=== PATIENT | female | born 1985 | race Caucasian/White ===

== ENCOUNTER 2023-11-13 08:27 | Outpatient (CLI) | payer OTHER ==
[2023-11-13 12:09] LABS: BASOPHILS % (AUTO) 0.9 %; EOSINOPHILS # (AUTO) 0.1 10^3/uL (0.0-0.7); EOSINOPHILS % (AUTO) 2.2 %; HCT - HEMATOCRIT 42.2 % (37.0-47.0); HGB - HEMOGLOBIN 13.8 g/dL (12.0-16.0); LYMPHOCYTES # (AUTO) 1.7 10^3/uL (1.5-3.5); LYMPHOCYTES % (AUTO) 36.5 %; MEAN CORPUSCULAR HEMOGLOBIN 30.2 pg (27.0-31.0); MEAN CORPUSCULAR HGB CONC 32.7 g/dL (32.0-36.0); MEAN CORPUSCULAR VOLUME 92.3 fL (81.0-99.0); MEAN PLATELET VOLUME 9.3 fL (7.9-10.8); MONOCYTES # (AUTO) 0.3 10^3/uL (0.0-1.0); MONOCYTES % (AUTO) 6.5 %; NEUTROPHILS # (AUTO) 2.5 10^3/uL (1.5-6.6); NEUTROPHILS % (AUTO) 53.7 %; PLT - PLATELET COUNT 204 10^3/uL (130-450); RED BLOOD COUNT 4.57 10^6/uL (4.20-5.40); RED CELL DISTRIBUTION WIDTH 11.9 % (12.0-15.0); WHITE BLOOD COUNT 4.6 x10^3/uL (4.8-10.8)
[2023-11-13 13:00] LABS: THYROID STIMULATING HORMONE 0.98 uIU/mL (0.34-5.60)
[2023-11-13 13:04] LABS: PROLACTIN 4.31 ng/mL
== END 2023-11-13 08:28 | disposition home or self-care (01) ==
LOC: LAB.N 08:27
PROVIDERS: ATTEND Physician Assistant
DX: E22.1 Hyperprolactinemia (principal); D35.2 Benign neoplasm of pituitary gland; N93.9 Abnormal uterine and vaginal bleeding, unspecified; N92.0 Excessive and frequent menstruation with regular cycle
CPT/HCPCS: 36415; 82024; 82533; 83001; 83002; 84146; 84439; 84443; 85025

== ENCOUNTER 2023-11-15 09:45 | Outpatient (CLI) | payer OTHER ==
--- NOTE | 2023-11-15 17:03 | Ultrasound Report ---
PROCEDURE: Pelvic w/Transvaginal INDICATIONS: AUB TECHNIQUE: Real-time scanning was performed of the pelvic organs, with image documentation. Additional endovagi nal scanning was necessary due to incomplete visualization of the adnexal and endometrial structures by transabdominal scanning. COMPARISON: None. FINDINGS: Uterus: Uterus is anteverted and normal in size at 8.0 x 4.4 x 4.0 cm. The myometrium is homogeneou s. The endometrium measures 8 mm in combined thickness. Ovaries: The right ovary measures 3.3 x 2.0 x 2.0 cm, with a calculated ovarian volume of 6.8 cc. T he left ovary measures 2.8 x 1.9 x 1.9 cm, with a calculated ovarian volume of 5.25 cc. The ovaries have a normal sonographic appearance. Less than 12 follicles can be seen in each ovary. No adnexal masses are seen. There is a right corpus luteal cyst which measures 1.7 x 2.3 x 1.5 cm and a left ova jurgen follicle which measures 1.4 x 1.0 x 1.3 cm. Other: No pathologic free abdominal or pelvic fluid. IMPRESSION: 1. Unremarkable pelvic ultrasound. Reviewed by: Samanta Limon MD on 11/15/2023 5:01 PM PST Approved by: Samanta Limon MD on 11/15/2023 5:01 PM PST Station ID: [id number]
== END 2023-11-15 09:46 | disposition home or self-care (01) ==
LOC: DI 09:45
PROVIDERS: ATTEND Physician Assistant
DX: N93.9 Abnormal uterine and vaginal bleeding, unspecified (principal); E22.1 Hyperprolactinemia

== ENCOUNTER 2024-07-06 11:18 | Outpatient (CLI) | payer OTHER ==
--- NOTE | 2024-07-13 11:27 | Mammography Report ---
BILATERAL DIGITAL SCREENING MAMMOGRAM 3D/2D: 07/06/2024 CLINICAL: Routine screening. No prior exams were available for comparison. The breasts are extremely dense, which lowers the sensitivity of mammography (category d />75% glandu lar tissue). No significant masses, calcifications, or other findings are seen in either breast. IMPRESSION: NEGATIVE There is no mammographic evidence of malignancy. A 1 year screening mammogram is recommended. Based on Tyrer-Cuzick model (a risk assessment model), the patient's lifetime risk is 23.1% and her 1 0 year risk is 3.1%. If a patient has an elevated risk, a more comprehensive evaluation should be con sidered and/or a referral to a genetic counselor. The [place] [employer], [place] [employer], and NCCN Guidelines advise the consideration of Breast MRI as an adjunct to screening mammog digna in patients whose "Lifetime risk to develop breast cancer" is 20% or higher. This exam was interpreted at Station ID: [id number]. NOTE: For mammograms, a report in lay terms will be sent to the patient. Approximately 15% of breast malignancies will not be visualized mammographically. In the management of a palpable breast mass, a negative mammogram must not discourage biopsy of a clinically suspicious lesion. Electronically Signed By: Dhara alvarez/patricio:07/12/2024 17:17:57 letter sent: No_Letter ACR BI-RADS Category 1: Negative 3341F PARENCHYMAL PATTERN: (VD) - The breast(s) demonstrate(s) extremely dense parenchyma, limiting the sen sitivity of mammography. BI-RADS CATEGORY: (1) - 1 RECOMMENDATION: (ANNUAL) - Recommend routine annual screening mammography. [id number] 1 year screening LATERALITY: (B)
== END 2024-07-06 11:19 | disposition home or self-care (01) ==
LOC: DI 11:18
DX: Z12.31 Encounter for screening mammogram for malignant neoplasm of breast (principal)

== ENCOUNTER 2024-07-19 08:49 | Emergency (ER) | payer OTHER ==
--- NOTE | 2024-07-19 09:31 | ED Physician Documentation ---
PD HPI LOWER EXT INJURY - Stated complaint Stated Complaint: RT FOOT BRUISING/SWOLLEN - Chief complaint Chief Complaint: Ext Problem - History obtained from History obtained from: Patient - History of Present Illness PD HPI LOW EXT INJURY LOCATION: Right, Foot Type of injury: Blunt / blow Where injury occurred: Home Timing - onset: Last night Timing - duration: Hours Timing - details: Abrupt onset, Still present, Still present in ED Improved by: Rest, Immobilization Worsened by: Moving, Palpating Associated symptoms: Swelling. No: Weakness, Numbness, Tingling Contributing factors: No: Anticoagulated Similar symptoms before: Has not had sx before Recently seen: Not recently seen - Additional information Additional information: Jillian Issa is a 39-year-old female was playing tag with her children last night when she ran behind the couch and struck the dorsum of the right foot on the handle of a dumbbell. She had significant pain associated with this she had swelling associated with this and she is having difficulty with bearing weight on the foot mostly related to pain in the distal second toe. Review of Systems Constitutional: denies: Fever, Chills GI: denies: Nausea, Vomiting, Diarrhea PD PAST MEDICAL HISTORY - Past Medical History Past Medical History: No - Past Surgical History Past Surgical History: No - Allergies Allergies/Adverse Reactions: Allergies Allergy/AdvReac Type Severity Reaction Status Date / Time Sulfa (Sulfonamide Allergy Unknown Verified 07/19/24 08:56 Antibiotics) - Social History Does the pt smoke?: No Smoking Status: Never smoker Does the pt drink ETOH?: No Does the pt have substance abuse?: No - POLST Patient has POLST: No PD ED PE NORMAL - Vitals Vital signs reviewed: Yes (normal) - General General: Alert and oriented X 3, No acute distress, Well developed/nourished - HEENT HEENT: Atraumatic, PERRL, EOMI - Respiratory Respiratory: No respiratory distress - Derm Derm: Normal color, Warm and dry, No rash - Extremities Extremities: No deformity, No edema, Other (Specific point tenderness over the proximal phalange of the right second toe with overlying swelling. There is no tenderness to palpation of the distal metatarsal from the plantar surface of the foot. Distal neurovascular components intact. Any movement of the toe causes pain.) - Neuro Neuro: Alert and oriented X 3, biosecurity officer 2-12 intact, No motor deficit, No sensory deficit, Normal speech Eye Opening: Spontaneous Motor: Obeys Commands Verbal: Oriented GCS Score: 15 - Psych Psych: Normal mood, Normal affect Results - Vitals Vitals: Vital Signs - 24 hr 07/19/24 07/19/24 08:56 10:22 Temperature 36.4 C L Heart Rate 65 64 Respiratory 17 15 Rate Blood Pressure 129/79 118/76 O2 Saturation 100 99 Oxygen O2 Source Room air - Rads (name of study) foot Relevant Findings:: Prelim report reviewed (Impression: Second proximal phalange fracture.), EMP independent interpretation of test PD Medical Decision Making - ED course Complexity details: reviewed results, re-evaluated patient, considered differential, d/w patient ED course: 39-year-old female stubbing her toe on a dumbbell has a proximal phalanx fra cture with minimal displacement. She is placed into a postop shoe with metatarsal padding and is able to ambulate in this without significant pain. Departure - Departure Disposition: 01 Home, Self Care Clinical Impression: Fracture of second toe, right, closed Qualifiers: Encounter type: initial encounter Qualified Code(s): S92.501A - Displaced unspecified fracture of right lesser toe(s), initial encounter for closed fracture Condition: Stable Instructions: ED Fx Toe Open Follow-Up: Jay Mcclendon MD [Provider Admit Priv/Credential] - Comments: Jillian, today it looks like you have a fracture of the proximal phalange of the second toe on your right foot and the expectation is this should heal without problems. We have fashioned some padding under the metatarsal heads and my recommendation is to use this with the postop shoe provided for comfort when walking. Our expectation is improvement in your pain over the next several weeks and normal walking by 6 weeks. I have given you the name of an orthopedic doctor to follow-up with. Forms: PCP List Discharge Date/Time: 07/19/24 10:22
--- NOTE | 2024-07-19 09:50 | XRAY Report ---
PROCEDURE: Foot 3+V RT INDICATIONS: contusion of foot, dorsal 2nd toe. TECHNIQUE: 3 views of the foot were acquired. COMPARISON: None. FINDINGS: Bones: Minimally displaced, intra-articular fracture of the base of the second proximal phalange. Soft tissues: No tibiotalar joint effusion. Achilles tendon appears normal. IMPRESSION: Second proximal phalange fracture. Reviewed by: Jeni Dodd MD, PhD on 07/19/2024 9:49 AM PDT Approved by: Jeni Dodd MD, PhD on 07/19/2024 9:49 AM PDT Station ID: [id number]
[2024-07-19 10:30] VITALS: BP 118/76; O2SAT 99
== END 2024-07-19 10:22 | disposition home or self-care (01) ==
LOC: ED 08:49
DX: S92.511A Displaced fracture of proximal phalanx of right lesser toe(s), initial encounter for closed fracture (principal); W22.8XXA Striking against or struck by other objects, initial encounter; Y92.009 Unspecified place in unspecified non-institutional (private) residence as the place of occurrence of the external cause
CPT/HCPCS: 99283